=== PATIENT | male | born 1990 | race Caucasian/White ===

== ENCOUNTER 2017-07-22 11:03 | Emergency (ER) | payer OTHER ==
[2017-07-22 11:16] VITALS: BP 132/82
--- NOTE | 2017-07-22 12:22 | ED Physician Documentation ---
PD HPI UPPER EXT INJURY - Stated complaint Stated Complaint: R PINKY INJ - Chief complaint Chief Complaint: Ext Problem - History obtained from History obtained from: Patient - History of Present Illness Location: Other (2 days ago at work his pinky finger was forcefully everted while lifting a box that kind of fell and he has persistent pain at the MCP and PIP there.) Review of Systems Constitutional: reports: Reviewed and negative Ears: reports: Reviewed and negative Nose: reports: Reviewed and negative PD PAST MEDICAL HISTORY - Past Medical History Past Medical History: No - Past Surgical History Past Surgical History: Yes HEENT: Myringotomy (tubes), Tonsil/Adenoidectomy - Present Medications Home Medications: Ambulatory Orders Medication Instructions Recorded Confirmed Ibuprofen [Motrin] 800 mg PO Q8H PRN #30 tablet 07/22/17 - Allergies Allergies/Adverse Reactions: Allergies Allergy/AdvReac Type Severity Reaction Status Date / Time No Known Drug Allergies Allergy Verified 07/22/17 11:10 - Social History Does the pt smoke?: Yes Smoking Status: Current every day smoker Does the pt drink ETOH?: Yes ETOH Use: Liquor Does the pt have substance abuse?: No - Immunizations Immunizations are current?: Yes - POLST Patient has POLST: No PD ED PE NORMAL - Vitals Vital signs reviewed: Yes - General General: Alert and oriented X 3, No acute distress - Extremities Extremities: Other (Mild tenderness and swelling at the fifth MCP and PIP of the right digit with normal neurovascular status. Good range of motion.) - Neuro Neuro: Alert and oriented X 3, Normal speech - Psych Psych: Normal mood, Normal affect Results - Vitals Vitals: Vital Signs - 24 hr 07/22/17 11:07 Temperature 36.3 C L Heart Rate 80 Respiratory 20 Rate Blood Pressure 132/82 H O2 Saturation 100 Oxygen O2 Source Room air Departure - Departure Disposition: 01 Home, Self Care Clinical Impression: Sprain of finger of right hand Qualifiers: Encounter type: initial encounter Finger: little finger Sprain of finger site: interphalangeal joint Qualified Code(s): S63.636A - Sprain of interphalangeal joint of right little finger, initial encounter Condition: Good Record reviewed to determine appropriate education?: Yes Instructions: ED Sprain Finger Prescriptions: Ibuprofen [Motrin] 800 mg PO Q8H PRN #30 tablet PRN Reason: PAIN &/OR FEVER Comments: Keep the fingers toshia taped as shown for support and follow-up with your doctor in 2 weeks if not better. Return if worse. Your blood pressure was elevated today on check into the emergency department. This does not mean that you have hypertension, it is a common phenomenon to come to the emergency department and have elevated blood pressure. I recommend that you see your primary care physician within the week to have it rechecked when you are feeling better.
--- NOTE | 2017-07-22 12:27 | XRAY Preliminary Report ---
Exam: XR HAND 3 VIEW RT IMPRESSION: No fracture evident. [facility] SITE ID: [id number]
--- NOTE | 2017-07-22 12:30 | XRAY Report ---
EXAM: RIGHT HAND RADIOGRAPHY EXAM DATE: 07/22/2017 11:51 AM. CLINICAL HISTORY: Finger vs box. Injury 2 days ago, persistent pain. Fifth finger bent backwards. COMPARISON: None. TECHNIQUE: 3 views. FINDINGS: Bones: Normal. No fractures or bone lesions. Joints: Normal. No subluxations. Soft Tissues: Normal. No soft tissue swelling. IMPRESSION: No fracture evident. [facility] Referring Provider Line: [phone] SITE ID: [id number]
== END 2017-07-22 12:24 | disposition home or self-care (01) ==
LOC: ED 11:03
DX: S63.636A Sprain of interphalangeal joint of right little finger, initial encounter (principal); X50.0XXA Overexertion from strenuous movement or load, initial encounter; R03.0 Elevated blood-pressure reading, without diagnosis of hypertension; F17.200 Nicotine dependence, unspecified, uncomplicated
CPT/HCPCS: 99283

== ENCOUNTER 2020-12-05 19:08 | Emergency (ER) | payer BC, OTHER ==
[2020-12-05] MEDS ORDERED: ACETAMINOPHEN 325 MG TABLET PO STA (19:16)
--- NOTE | 2020-12-05 19:51 | XRAY Report ---
PROCEDURE: Hand 3 View RT INDICATIONS: punched dresser. hand pain TECHNIQUE: 3 views of the hand(s) acquired. COMPARISON: none FINDINGS: Bones: No fractures or dislocations. No suspicious bony lesions. Soft tissues: No suspicious soft tissue calcifications. IMPRESSION: No visualized acute fracture or dislocation. However, occult injury cannot be excluded. Recommend zeferino rt interval imaging follow-up in 7-10 days as clinically indicated for additional evaluation. Reviewed by: Libby Torres MD on 12/05/2020 7:50 PM PDT Approved by: Libby Torres MD on 12/05/2020 7:50 PM PDT Station ID: [id number]
--- NOTE | 2020-12-05 21:48 | ED Physician Documentation ---
History of Present Illness - Stated complaint Stated Complaint: right hand injury - Chief complaint Chief Complaint: Trauma Ext - History obtained from History obtained from: Patient - Additonal information Additional information: 30yM presents with R third knuckle pain after he states he tripped over his dog into a dresser. tetanus utd. patient is able to make a fist without pain. Review of Systems Skin: reports: Abrasion (s) Musculoskeletal: reports: Extremity pain Neurologic: denies: Focal weakness, Numbness PD PAST MEDICAL HISTORY - Past Surgical History Past Surgical History: Yes HEENT: Myringotomy (tubes), Tonsil/Adenoidectomy - Present Medications Home Medications: Ambulatory Orders Medication Instructions Recorded Confirmed Ibuprofen [Motrin] 800 mg PO Q8H PRN #30 tablet 07/22/17 - Allergies Allergies/Adverse Reactions: Allergies Allergy/AdvReac Type Severity Reaction Status Date / Time No Known Drug Allergies Allergy Verified 12/05/20 19:15 - Social History Does the pt smoke?: Yes Smoking Status: Current every day smoker Does the pt drink ETOH?: Yes Does the pt have substance abuse?: No - Immunizations Immunizations are current?: Yes - POLST Patient has POLST: No PD ED PE NORMAL - Vitals Vital signs reviewed: Yes - General General: Alert and oriented X 3, No acute distress, Well developed/nourished - HEENT HEENT: Atraumatic, PERRL, EOMI - Neck Neck: Supple, no meningeal sign - Extremities Extremities: No deformity, Other (no bony ttp. nontender with rom of the wrist a nd fingers of the hand. base of the 3rd metacarpal with small abrasion) - Neuro Neuro: Alert and oriented X 3, No motor deficit, No sensory deficit Results - Vitals Vitals: Vital Signs - 24 hr 12/05/20 12/05/20 19:12 21:55 Temperature 36.5 C 36.5 C Heart Rate 89 88 Respiratory 14 16 Rate Blood Pressure 138/78 H 130/80 O2 Saturation 97 98 Oxygen O2 Source Room air PD MEDICAL DECISION MAKING - ED course ED course: 30yM presents with R hand pain after hitting hand on a dresser. denies other injuries. exam noncontributory. xr without fracture. return precautions given. patient will f.u with pmd. Departure - Departure Disposition: 01 Home, Self Care Clinical Impression: Hand pain, right Condition: Good Instructions: ED RICE Follow-Up: Vincenzo Perdomo MD [Provider Admit Priv/Credential] - Comments: You were seen in the emergency department for evaluation of hand pain. Your x- ray did not show a break in the bone. Please follow-up with orthopedics in 1 week if you do not have improvement. Return to the emergency department if you have any new or worsening symptoms or other concerns. Discharge Date/Time: 12/05/20 21:55
[2020-12-05 21:56] VITALS: BP 130/80
== END 2020-12-05 21:55 | disposition home or self-care (01) ==
LOC: ED 19:08
DX: M79.641 Pain in right hand (principal); S60.511A Abrasion of right hand, initial encounter; W01.190A Fall on same level from slipping, tripping and stumbling with subsequent striking against furniture, initial encounter; F17.200 Nicotine dependence, unspecified, uncomplicated
CPT/HCPCS: 99282; 99283

== ENCOUNTER 2023-01-02 16:47 | Outpatient (CLI) | payer BC | END 2023-01-02 23:59 | disposition EMS.NT | LOC: EMS 16:47 | DX: M79.632 Pain in left forearm (principal); V49.40XA Driver injured in collision with unspecified motor vehicles in traffic accident, initial encounter; Y92.413 State road as the place of occurrence of the external cause ==

== ENCOUNTER 2023-01-07 07:49 | Outpatient (CLI) | payer BC ==
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
== END 2023-01-07 07:50 | disposition home or self-care (01) ==
LOC: DI.N 07:49
PROVIDERS: ATTEND Registered Nurse
DX: M54.12 Radiculopathy, cervical region (principal); S80.02XA Contusion of left knee, initial encounter